=== PATIENT | female | born 1990 | race Caucasian/White ===

== ENCOUNTER 2020-09-10 00:14 | Emergency (ER) | payer MEDICAID ==
[~2020-09-10] VITALS: Ht 157.5 cm; Wt 95.5 kg
[2020-09-10] MEDS ORDERED: ibuprofen tablet 400 MG TABLET PO ONE (01:15)
[2020-09-10] MEDS ORDERED: acetaminophen 325mg tablet PO ONE (01:15)
[2020-09-10] MEDS ORDERED: amoxicillin 250mg capsule PO ONE (01:15)
[2020-09-10] MEDS ORDERED: ondansetron 4mg rapidly disintigrating tab PO ONE ×2 (01:15→01:50)
[2020-09-10] MEDS ORDERED: IBUP-1984 PO (01:17)
[2020-09-10] MEDS ORDERED: ACET-2615 PO (01:17)
[2020-09-10] MEDS ORDERED: AMOX500C2 PO (01:17)
[2020-09-10] MEDS ORDERED: ibuprofen 200mg tablet PO ONE (01:50)
[2020-09-10 01:56] VITALS: BP 135/89
== END 2020-09-10 02:00 | disposition home or self-care (01) ==
LOC: ER 00:16
DX: K08.89 Other specified disorders of teeth and supporting structures (principal); Z79.2 Long term (current) use of antibiotics; Z79.899 Other long term (current) drug therapy
CPT/HCPCS: 99284

== ENCOUNTER 2020-10-04 20:56 | Emergency (ER) | payer MEDICAID ==
[~2020-10-04] VITALS: Ht 160 cm; Wt 86.0 kg
[~2020-10-04 20:56] MED LIST: AMOX500C2 PO
[2020-10-04 21:05] VITALS: BP 158/89
[2020-10-04] MEDS ORDERED: HYDROcodone/acetaminophen 5mg/325mg tablet PO ONE (21:30)
[2020-10-04] MEDS ORDERED: PENI500T2 PO (21:30)
== END 2020-10-04 21:51 | disposition home or self-care (01) ==
LOC: ER 20:56
DX: S02.5XXA Fracture of tooth (traumatic), initial encounter for closed fracture (principal); K08.89 Other specified disorders of teeth and supporting structures; R20.0 Anesthesia of skin; Z79.2 Long term (current) use of antibiotics; X58.XXXA Exposure to other specified factors, initial encounter; Y93.89 Activity, other specified; Y92.89 Other specified places as the place of occurrence of the external cause; Y99.8 Other external cause status
CPT/HCPCS: 99283

== ENCOUNTER 2020-10-09 21:53 | Emergency (ER) | payer MEDICAID ==
[~2020-10-09] VITALS: Ht 160 cm; Wt 85.7 kg
[~2020-10-09 21:53] MED LIST changes: +PENI500T2 PO
[2020-10-09 22:49] VITALS: BP 152/103
== END 2020-10-09 22:53 | disposition home or self-care (01) ==
LOC: ER 21:58
DX: R76.11 Nonspecific reaction to tuberculin skin test without active tuberculosis (principal); Z79.2 Long term (current) use of antibiotics
CPT/HCPCS: 99281

== ENCOUNTER 2021-01-25 17:20 | Emergency (ER) | payer MEDICAID ==
[2021-01-25] MEDS ORDERED: P-EP-35 PO (23:51)
== END 2021-01-25 17:36 | disposition left against medical advice (07) ==
LOC: ER 17:21
DX: H92.09 Otalgia, unspecified ear (principal); Z53.21 Procedure and treatment not carried out due to patient leaving prior to being seen by health care provider

== ENCOUNTER 2021-01-25 21:33 | Emergency (ER) | payer MEDICAID ==
[~2021-01-25] VITALS: Ht 165.1 cm; Wt 100.2 kg
[2021-01-25] MEDS ORDERED: loratadine 10mg tablet PO STA (23:32)
[2021-01-25] MEDS ORDERED: mupirocin 2% ointment 22GM TP STA (23:32)
[2021-01-25] MEDS ORDERED: P-EP-35 PO (23:51)
[2021-01-26 00:54] VITALS: BP 124/80
== END 2021-01-26 00:56 | disposition home or self-care (01) ==
LOC: ER 21:33
DX: H92.02 Otalgia, left ear (principal); Z87.442 Personal history of urinary calculi
CPT/HCPCS: 99283

== ENCOUNTER 2021-02-07 22:21 | Emergency (ER) | payer MEDICAID ==
[~2021-02-07] VITALS: Ht 160 cm; Wt 97.8 kg
[~2021-02-07 22:21] MED LIST changes: -AMOX500C2 PO; +P-EP-35 PO; -PENI500T2 PO
[2021-02-07 22:24] VITALS: BP 140/85
[2021-02-07] MEDS ORDERED: TETanus/Pertussis (Acell)/Diphther VAC/PF (Tdap-Adult) 0.5ml syringe IMVAC ONE (23:05)
[2021-02-07] MEDS ORDERED: MUPI22OI30 TOP (23:30)
== END 2021-02-07 23:43 | disposition home or self-care (01) ==
LOC: ER 22:22
DX: S91.301A Unspecified open wound, right foot, initial encounter (principal); M79.671 Pain in right foot; Z87.442 Personal history of urinary calculi; Z20.3 Contact with and (suspected) exposure to rabies; Z79.2 Long term (current) use of antibiotics; Z79.899 Other long term (current) drug therapy; X58.XXXA Exposure to other specified factors, initial encounter; Y93.89 Activity, other specified; Y92.89 Other specified places as the place of occurrence of the external cause; Y99.8 Other external cause status
CPT/HCPCS: 73630; 90471; 90715; 99283

== ENCOUNTER 2021-02-26 18:29 | Emergency (ER) | payer MEDICAID ==
[~2021-02-26] VITALS: Ht 160 cm; Wt 101.0 kg
[2021-02-26 19:03] VITALS: BP 142/95
[2021-02-26 19:39] LABS: URINE HCG NEGATIVE (NEG)
[2021-02-26 19:40] LABS: COLOR,URINE YELLOW (Yellow); GLUCOSE, URINE NEGATIVE (Neg); KETONES,URINE NEGATIVE (Neg); LEUKOCYTE ESTERASE ,URINE NEGATIVE (Neg); NITRITES, URINE NEGATIVE (Neg); OCCULT BLOOD,URINE NEGATIVE (Neg); PROTEIN,URINE NEGATIVE (Neg); UROBILINOGEN,URINE 0.2 E.U/dL (0.2-1.0)
[2021-02-26 19:47] LABS: CLARITY,URINE SLIGHTLY CLOUDY (Clear); UA COLLECTION TYPE CLN CATCH MIDSTREAM
[2021-02-26 19:48] LABS: BACTERIA,URINE 2+ /HPF (Neg); MUCUS STRANDS MANY /LPF (Neg); RBC,URINE 0-2 /HPF (0-2); SQUAMOUS EPITHELIAL CELL,UR MANY /LPF (FEW); WBC,URINE 0-4 /HPF (0-4)
[2021-02-26 19:49] LABS: YEAST FEW /HPF (NEGATIVE)
== END 2021-02-26 22:19 | disposition home or self-care (01) ==
LOC: ER 18:30
DX: Z02.89 Encounter for other administrative examinations (principal); Z87.442 Personal history of urinary calculi; Z79.899 Other long term (current) drug therapy
CPT/HCPCS: 81001; 81025; 99283

== ENCOUNTER 2021-04-21 01:56 | Emergency (ER) | payer MEDICAID ==
[~2021-04-21] VITALS: Ht 160 cm; Wt 100.5 kg
[2021-04-21 02:21] VITALS: BP 156/100
[2021-04-21 02:50] LABS: BASOPHILS # (AUTO) 0.1 X10'3 (0-0.2); BASOPHILS % (AUTO) 0.9 % (0-1); EOSINOPHILS # (AUTO) 0.2 X10'3 (0-0.9); EOSINOPHILS % (AUTO) 1.9 % (0-6); HEMATOCRIT 41.6 % (35.0-45.0); HEMOGLOBIN 13.8 g/dl (12.0-16.0); LYMPHOCYTES % (AUTO) 36.4 % (21-51); MEAN CORPUSCULAR HEMOGLOBIN 29.1 PG (27.0-31.0); MEAN CORPUSCULAR HGB CONC 33.3 g/dL (33.0-36.5); MEAN CORPUSCULAR VOLUME 87.4 FL (78-98); MEAN PLATELET VOLUME 6.6 FL (7.4-10.4); MONOCYTES # (AUTO) 0.6 X10'3 (0-0.9); MONOCYTES % (AUTO) 6.9 % (2-12); NEUTROPHILS # (AUTO) 4.5 X10'3 (1.8-7.7); NEUTROPHILS % (AUTO) 53.9 % (42-75); PLATELET COUNT 352 X10'3 (140-440); RED BLOOD COUNT 4.76 X10'6 (4.20-5.60); RED CELL DISTRIBUTION WIDTH 12.5 % (11.5-14.5); WHITE BLOOD COUNT 8.4 X10'3 (4.5-11.0)
[2021-04-21] MEDS ORDERED: LIDOcaine Viscous 15ml cup MM ONE (02:50)
[2021-04-21] MEDS ORDERED: mag hydrox/Alum hydrox/simeth 30ml oral suspension PO ONE (02:50)
[2021-04-21 02:59] LABS: ALANINE AMINOTRANSFERASE 31 U/L (12-78); ALBUMIN 3.8 G/DL (3.4-5.0); ALKALINE PHOSPHATASE 100 IU/L (46-116); AMYLASE 54 U/L (25-115); ANION GAP 11 (8-16); ASPARTATE AMINO TRANSFERASE 13 U/L (10-37); BILIRUBIN,TOTAL 0.5 MG/DL (0.1-1.0); BLOOD UREA NITROGEN 10 MG/DL (7-18); BUN/CREATININE RATIO 11.5 (6.6-38.0); CALCIUM 9.3 MG/DL (8.5-10.1); CHLORIDE 106 MMOL/L (99-107); CREATININE 0.87 MG/DL (0.40-0.90); GLUCOSE 105 MG/DL (70-104); LIPASE 147 U/L (73-393); POTASSIUM 3.6 MMOL/L (3.5-5.1); SODIUM 146 MMOL/L (135-145); TOTAL CARBON DIOXIDE 28.6 MMOL/L (24-32); TOTAL PROTEIN 7.5 G/DL (6.4-8.2); eGFR 76 ML/MIN
[2021-04-21] MEDS ORDERED: METO5TAB85 PO (03:26)
== END 2021-04-21 03:26 | disposition home or self-care (01) ==
LOC: ER 01:57
DX: K21.9 Gastro-esophageal reflux disease without esophagitis (principal); R11.2 Nausea with vomiting, unspecified; Z87.442 Personal history of urinary calculi; Z79.899 Other long term (current) drug therapy
CPT/HCPCS: 36415; 80053; 82150; 83690; 85025; 99283

== ENCOUNTER 2021-05-26 20:40 | Emergency (ER) | payer MEDICAID ==
[~2021-05-26] VITALS: Ht 160 cm; Wt 100.0 kg
[~2021-05-26 20:40] MED LIST changes: +METO5TAB85 PO
[2021-05-26 20:54] VITALS: BP 156/82
[2021-05-26 22:04] LABS: URINE HCG POSITIVE (NEG)
[2021-05-26 22:14] LABS: CLARITY,URINE CLEAR (Clear); COLOR,URINE STRAW (Yellow); UA COLLECTION TYPE CLN CATCH MIDSTREAM
[2021-05-26 22:15] LABS: GLUCOSE, URINE NEGATIVE (Neg); KETONES,URINE NEGATIVE (Neg); LEUKOCYTE ESTERASE ,URINE NEGATIVE (Neg); NITRITES, URINE NEGATIVE (Neg); OCCULT BLOOD,URINE NEGATIVE (Neg); PROTEIN,URINE NEGATIVE (Neg); UROBILINOGEN,URINE 0.2 E.U/dL (0.2-1.0)
== END 2021-05-26 22:42 | disposition home or self-care (01) ==
LOC: ER 20:41
DX: O12.01 Gestational edema, first trimester (principal); R10.30 Lower abdominal pain, unspecified; M25.472 Effusion, left ankle; M25.471 Effusion, right ankle; Z3A.01 Less than 8 weeks gestation of pregnancy; Z87.442 Personal history of urinary calculi; Z79.899 Other long term (current) drug therapy
CPT/HCPCS: 76857; 81003; 81025; 93971; 99285

== ENCOUNTER 2021-08-22 12:06 | Emergency (ER) | payer MEDICAID ==
[~2021-08-22] VITALS: Ht 160 cm; Wt 104.7 kg
[2021-08-22 12:16] VITALS: BP 139/85
[2021-08-22 12:52] LABS: BASOPHILS % (AUTO) 0.5 % (0-1); EOSINOPHILS # (AUTO) 0.1 X10'3 (0-0.9); EOSINOPHILS % (AUTO) 1.3 % (0-6); HEMATOCRIT 37.9 % (35.0-45.0); HEMOGLOBIN 13.1 g/dl (12.0-16.0); LYMPHOCYTES # (AUTO) 1.5 X10'3 (1.1-4.8); LYMPHOCYTES % (AUTO) 20.6 % (21-51); MEAN CORPUSCULAR HEMOGLOBIN 30.9 PG (27.0-31.0); MEAN CORPUSCULAR HGB CONC 34.6 g/dL (33.0-36.5); MEAN CORPUSCULAR VOLUME 89.3 FL (78-98); MEAN PLATELET VOLUME 6.7 FL (7.4-10.4); MONOCYTES # (AUTO) 0.4 X10'3 (0-0.9); MONOCYTES % (AUTO) 5.6 % (2-12); NEUTROPHILS # (AUTO) 5.3 X10'3 (1.8-7.7); PLATELET COUNT 254 X10'3 (140-440); RED BLOOD COUNT 4.24 X10'6 (4.20-5.60); RED CELL DISTRIBUTION WIDTH 13.2 % (11.5-14.5); WHITE BLOOD COUNT 7.3 X10'3 (4.5-11.0)
[2021-08-22 12:56] LABS: CLARITY,URINE SLIGHTLY CLOUDY (Clear); GLUCOSE, URINE NEGATIVE (Neg); KETONES,URINE TRACE mg/dl (Neg); LEUKOCYTE ESTERASE ,URINE TRACE (Neg); NITRITES, URINE NEGATIVE (Neg); OCCULT BLOOD,URINE NEGATIVE (Neg); PROTEIN,URINE NEGATIVE (Neg); UROBILINOGEN,URINE 0.2 E.U/dL (0.2-1.0)
[2021-08-22 13:02] LABS: COLOR,URINE DARK YELLOW (Yellow); UA COLLECTION TYPE CLN CATCH MIDSTREAM
[2021-08-22 13:03] LABS: RBC,URINE NONE SEEN /HPF (0-2); WBC,URINE 0-4 /HPF (0-4)
[2021-08-22 13:04] LABS: BACTERIA,URINE 2+ /HPF (Neg); MUCUS STRANDS MODERATE /LPF (Neg); SQUAMOUS EPITHELIAL CELL,UR MANY /LPF (FEW)
[2021-08-22 13:07] LABS: ALANINE AMINOTRANSFERASE 21 U/L (12-78); ALBUMIN 3.1 G/DL (3.4-5.0); ALBUMIN/GLOBULIN RATIO 0.7 (1.1-1.5); ALKALINE PHOSPHATASE 67 IU/L (46-116); ANION GAP 10 (8-16); ASPARTATE AMINO TRANSFERASE 15 U/L (10-37); BILIRUBIN,TOTAL 0.3 MG/DL (0.1-1.0); BLOOD UREA NITROGEN 6 MG/DL (7-18); CALCIUM 9.3 MG/DL (8.5-10.1); CHLORIDE 103 MMOL/L (99-107); GLUCOSE 80 MG/DL (70-104); SODIUM 136 MMOL/L (135-145); TOTAL PROTEIN 7.4 G/DL (6.4-8.2); eGFR > 90 ML/MIN
[2021-08-22] MEDS ORDERED: acetaminophen 325mg tablet PO ONE (20:15)
== END 2021-08-22 20:29 | disposition home or self-care (01) ==
LOC: ER 12:06
DX: O26.892 Other specified pregnancy related conditions, second trimester (principal); R10.9 Unspecified abdominal pain; O21.0 Mild hyperemesis gravidarum; Z3A.18 18 weeks gestation of pregnancy; Z87.442 Personal history of urinary calculi; Z79.899 Other long term (current) drug therapy
CPT/HCPCS: 36415; 76770; 80053; 81001; 85025; 99284

== ENCOUNTER 2022-11-25 22:05 | Emergency (ER) | payer MEDICAID ==
[~2022-11-25] VITALS: Ht 160 cm; Wt 104.5 kg
[2022-11-25 22:11] VITALS: BP 131/96
[2022-11-25] MEDS ORDERED: ibuprofen tablet 400 MG TABLET PO ONE (23:35)
[2022-11-25] MEDS ORDERED: acetaminophen 325mg tablet PO ONE (23:35)
== END 2022-11-25 23:56 | disposition home or self-care (01) ==
LOC: ER 22:06
DX: H93.11 Tinnitus, right ear (principal)
CPT/HCPCS: 99283

== ENCOUNTER 2023-03-14 21:59 | Emergency (ER) | payer MEDICAID | END 2023-03-14 22:28 | disposition left against medical advice (07) | LOC: ER 21:59 | DX: R19.7 Diarrhea, unspecified (principal); Z53.21 Procedure and treatment not carried out due to patient leaving prior to being seen by health care provider ==

== ENCOUNTER 2024-11-01 14:48 | Emergency (ER) | payer MEDICAID, OTHER ==
[~2024-11-01] VITALS: Ht 160 cm; Wt 88.4 kg
[2024-11-01 14:51] VITALS: BP 148/94; PULSE 92; RESP 16; TEMP 98; O2SAT 97
== END 2024-11-01 17:24 | disposition left against medical advice (07) ==
LOC: ER 14:49
DX: M54.9 Dorsalgia, unspecified (principal); Z53.21 Procedure and treatment not carried out due to patient leaving prior to being seen by health care provider